=== PATIENT | male | born 1980 | race Caucasian/White ===

== ENCOUNTER 2022-06-19 15:14 | Emergency (ER) | payer BC ==
[2022-06-19 15:28] VITALS: BP 124/71; PULSE 90; RESP 20; TEMP 98.6
[2022-06-19] MEDS ORDERED: predniSONE 20 MG TAB PO STA (15:44)
[2022-06-19] MEDS ORDERED: valACYclovir HCL 1,000 MG TABLET PO SCH (15:45)
--- NOTE | 2022-06-19 15:53 | ED ---
General Adult HPI - General Chief complaint: Neuro Symptoms/Deficit Stated complaint: poss allergic reaction Time Seen by Provider: 06/19/22 15:30 Source: patient, RN notes reviewed, old records reviewed Mode of arrival: ambulatory Limitations: no limitations - History of Present Illness Initial comments: 41-year-old male presenting with 4 days of right-sided facial weakness. Patient noticed facial droop on Tuesday which was 4 days prior. He was seen in urgent care and thought to have sinus infection. He started on methylprednisolone and amoxicillin. He states his respiratory symptoms have improved but he has persistent facial weakness and drooping at the mouth is unable to close his eye. No limb weakness, no gait instability, no peripheral numbness or tingling. No headache. - Related Data Previous Rx's Medication Instructions Recorded predniSONE [Deltasone] 60 mg PO DAILY 6 Days #18 tab 06/19/22 valACYclovir HCL [Valacyclovir] 1,000 mg PO TID 7 Days #21 tab 06/19/22 Allergies Allergy/AdvReac Type Severity Reaction Status Date / Time No Known Allergies Allergy Verified 06/19/22 15:28 Review of Systems ROS Statement: Those systems with pertinent positive or pertinent negative responses have been documented in the HPI. ROS Other: All systems not noted in ROS Statement are negative. Past Medical History Past Medical History: No Reported History History of Any Multi-Drug Resistant Organisms: None Reported Past Surgical History: No Surgical Hx Reported Past Psychological History: No Psychological Hx Reported Smoking Status: Never smoker Past Alcohol Use History: None Reported Past Drug Use History: None Reported General Exam Limitations: no limitations General appearance: alert, in no apparent distress Head exam: Present: atraumatic, normocephalic Eye exam: Present: normal appearance, PERRL, EOMI Neck exam: Present: normal inspection. Absent: tenderness, meningismus Respiratory exam: Present: normal lung sounds bilaterally. Absent: respiratory distress, wheezes Cardiovascular Exam: Present: regular rate, normal rhythm GI/Abdominal exam: Present: soft. Absent: distended, tenderness Extremities exam: Present: normal inspection, normal capillary refill. Absent: pedal edema Neurological exam: Present: alert, oriented X3, motor sensory deficit (Facial weakness on the right, this involves the lower and upper face unable to raise the brow), other (Completely normal neurologic exam otherwise). Absent: CN II- XII intact Psychiatric exam: Present: normal affect, normal mood Skin exam: Present: warm, dry, intact Course Vital Signs 06/19/22 15:25 Temperature 98.6 F Pulse Rate 90 Respiratory 20 Rate Blood Pressure 124/71 O2 Sat by Pulse 97 Oximetry Medical Decision Making - Medical Decision Making Was pt. sent in by a medical professional or institution (, PA, CLINICAL REVIEW NURSE, urgent care, hospital, or long term...) When possible be specific @ -No Did you speak to anyone other than the patient for history (EMS, parent, family, police, friend...)? What history was obtained from this source @ -No Did you review nursing and triage notes (agree or disagree)? Why? @ -I reviewed and agree with nursing and triage notes Were old charts reviewed (outside hosp., previous admission, EMS record, old EKG, old radiological studies, urgent care reports/EKG's, long term records)? Report findings @ -No old charts were reviewed Differential Diagnosis (chest pain, altered mental status, abdominal pain women, abdominal pain men, vaginal bleeding, weakness, fever, dyspnea, syncope, headache, dizziness, GI bleed, back pain, seizure, CVA, palpatations, mental health, musculoskeletal)? @ -Differential CVA Ischemic stroke, hemorrhagic stroke, brain tumor, atypical migraine, Wernicke's encephalopathy, seizure, multiple sclerosis, meningitis, encephalitis, hypoglycemia, Guillain-Garrett, electrolytes disturbance, myasthenia gravis.... This is not meant to be an all-inclusive list EKG interpreted by me (3pts min.). @ -As above X-rays interpreted by me (1pt min.). @ -None done CT interpreted by me (1pt min.). @ -None done U/S interpreted by me (1pt. min.). @ -None done What testing was considered but not performed or refused? (CT, X-rays, U/S, labs)? Why? @ -None What meds were considered but not given or refused? Why? @ -None Did you discuss the management of the patient with other professionals (professionals i.e. , TRAVIS, CLINICAL REVIEW NURSE, lab, RT, psych nurse, social services analyst, sales and marketing intern, teacher, airplane first officer, case briefer)? Give summary @ -No Was smoking cessation discussed for >3mins.? @ -No Was critical care preformed (if so, how long)? @ -No Were there social determinants of health that impacted care today? How? (Homelessness, low income, unemployed, alcoholism, drug addiction, transportation, low edu. Level, literacy, decrease access to med. care, care home, rehab)? @ -No Was there de-escalation of care discussed even if they declined (Discuss DNR or withdrawal of care, Hospice)? DNR status @ -No What co-morbidities impacted this encounter? (DM, HTN, Smoking, COPD, CAD, Cancer, CVA, ARF, Chemo, Hep., AIDS, mental health diagnosis, sleep apnea, morbid obesity)? @ -None Was patient admitted / discharged? Hospital course, mention meds given and route, prescriptions, significant lab abnormalities, going to OR and other pertinent info. @ -41-year-old male with 4 days of right-sided facial weakness consistent with Ferreira's palsy. No other neurological findings. The tympanic membrane is normal on the right as well as the external auditory canal. He has involvement of both the forehead and the lower face. We did discuss return parameters including the development of any additional neurological symptoms. He will take his eye shut and use eye lubricant. He will follow-up with primary care physician as well as ophthalmology. He will take that his own and Valtrex for the next one week. Undiagnosed new problem with uncertain prognosis? @ -No Drug Therapy requiring intensive monitoring for toxicity (Heparin, Nitro, Insulin, Cardizem)? @ -No Were any procedures done? @ -No Diagnosis/symptom? @ -Ferreira's palsy Acute, or Chronic, or Acute on Chronic? @ -Acute Uncomplicated (without systemic symptoms) or Complicated (systemic symptoms)? @ -Uncomplicated Side effects of treatment? @ -No Exacerbation, Progression, or Severe Exacerbation? @ -No Poses a threat to life or bodily function? How? (Chest pain, [place], SC, pneumonia, PE, COPD, DKA, ARF, appy, cholecystitis, CVA, Diverticulitis, Homicidal, Suicidal, threat to staff... and all critical care pts) @ -No Disposition Clinical Impression: Ferreira's palsy Disposition: HOME SELF-CARE Condition: Good Instructions (If sedation given, give patient instructions): Ferreira Palsy (ED) Additional Instructions: Please either wear eye patch or tape the eye shut at night. Use lubricating ointment at night and artificial tears during the day. Prescriptions: predniSONE [Deltasone] 60 mg PO DAILY 6 Days #18 tab valACYclovir HCL [Valacyclovir] 1,000 mg PO TID 7 Days #21 tab Is patient prescribed a controlled substance at d/c from ED?: No Referrals: None,Stated [Primary Care Provider] - 1-2 days Zuhair Cabello MD [STAFF PHYSICIAN] - 1-2 days Luis Villarreal III, MD [STAFF PHYSICIAN] - 1-2 days Loly Curran MD [STAFF PHYSICIAN] - 1-2 days Time of Disposition: 15:46
== END 2022-06-19 16:35 | disposition home or self-care (01) ==
LOC: EC 15:14
DX: G51.0 Bell's palsy (principal)
CPT/HCPCS: 99284; J7512